=== PATIENT | male | born 1985 | race Caucasian/White ===

== ENCOUNTER 2016-12-27 11:29 | Emergency (ER) | payer MEDICAID ==
[~2016-12-27] VITALS: Ht 170.2 cm; Wt 93.0 kg
[2016-12-27 13:31] VITALS: BP 142/96
== END 2016-12-27 13:31 | disposition home or self-care (01) ==
LOC: ED 11:29
DX: K43.2 Incisional hernia without obstruction or gangrene (principal); E66.9 Obesity, unspecified